=== PATIENT | female | born 1950 | race Hispanic/Latino ===

== ENCOUNTER 2017-01-15 08:08 | Outpatient (CLI) | payer MEDICARE ==
--- NOTE | 2017-01-15 09:46 | Mammography Report ---
BILATERAL MAMMOGRAM with CAD: HISTORY: Cancer screening. Comparison study is dated January 01, 2016 FINDINGS: The breast tissue is heterogeneously dense, which could obscure detection of small masses (approximately 50%-75% glandular). No mass, distortion, suspicious calcification, or skin change is seen. IMPRESSION: Negative mammogram. There is no mammographic evidence of malignancy. RECOMMENDATION: Follow-up per ACS guidelines. BI-RADS CATEGORY: 1 = Negative ACR BI-RADS MAMMOGRAPHIC CODES: 0 = Needs additional imaging evaluation; 1 = Negative; 2 = Benign; 3 = Probably benign; 4 = Suspicious; 5 = Malignant; 6 = Known biopsy-proven malignancy COMMENT: 1. Dense breast tissue, i.e., adenosis, fibrocystic changes, etc., may obscure an underlying neoplasm. 2. Approximately 10% of cancers are not detected with mammography. 3. A negative mammography report should not delay biopsy if a clinically suspicious mass is present. COMMENT: Patient follow-up letters are generated in [employer].
== END 2017-01-15 08:09 | disposition home or self-care (01) ==
LOC: MAMMO 08:08
PROVIDERS: ATTEND Family Medicine
DX: Z12.31 Encounter for screening mammogram for malignant neoplasm of breast (principal); E78.00 Pure hypercholesterolemia, unspecified; J44.9 Chronic obstructive pulmonary disease, unspecified; F32.9 Major depressive disorder, single episode, unspecified; F17.200 Nicotine dependence, unspecified, uncomplicated
CPT/HCPCS: 77067; G0202

== ENCOUNTER 2018-01-26 08:26 | Outpatient (CLI) | payer MEDICARE ==
--- NOTE | 2018-01-26 09:46 | Mammography Report ---
BILATERAL DIGITAL SCREENING MAMMOGRAM with CAD : 01/26/18 08:26:00 CLINICAL: Routine screening. COMPARISON:01/15/18 FINDINGS: The breasts are heterogeneously dense, which may obscure small masses. No mass, architectural distortion or suspicious calcifications. IMPRESSION: No mammographic evidence of malignancy. BI-RADS CATEGORY: 2 -- Benign RECOMMENDATION: Routine mammographic screening in one year. COMMENT: Patient follow-up letters are generated by our [employer] application.
== END 2018-01-26 08:27 | disposition home or self-care (01) ==
LOC: MAMMO 08:26
PROVIDERS: ATTEND Family Medicine
DX: Z12.31 Encounter for screening mammogram for malignant neoplasm of breast (principal); E78.00 Pure hypercholesterolemia, unspecified; J44.9 Chronic obstructive pulmonary disease, unspecified; F32.9 Major depressive disorder, single episode, unspecified; Z90.710 Acquired absence of both cervix and uterus; Z88.0 Allergy status to penicillin
CPT/HCPCS: 77067

== ENCOUNTER 2022-01-02 10:22 | Outpatient (CLI) | payer MEDICARE ==
--- NOTE | 2022-01-03 11:28 | Mammography Report ---
DIGITAL SCREENING MAMMOGRAM WITH CAD, 01/02/2022 CLINICAL INFORMATION / INDICATION: Routine screening mammography. SCREENING MAMMOGRAM TECHNIQUE: Digital bilateral 2D mammography was obtained in the craniocaudal and mediolateral obliqu e projections. This examination was interpreted with the benefit of Computer-Aided Detection analysis . COMPARISON: 01/15/2017. FINDINGS: Breast Density: There are scattered areas of fibroglandular density. No dominant mass, suspicious calcifications, or architectural distortion in either breast. IMPRESSION: No mammographic evidence of malignancy. Follow up recommendation: Routine yearly screening mammogram. BI-RADS Category 1: NEGATIVE A "normal" or negative report should not discourage follow up or biopsy of a clinically significant f inding. A written summary of these findings will be mailed to the patient. The patient will be entered into a mammography reporting system which will generate a reminder letter for the patient's next appointmen t at the appropriate interval. The [employer] recommends yearly mammograms starting at age 40 and continuing as l raiza as a woman is in good health. Breast MRI is recommended for women with an approximate 20-25% or greater lifetime risk of breast cancer, including women with a strong family history of breast or ova tiffanie cancer or who have been treated for Hodgkin's disease. Signer Name: Eliecer Boyd MD Signed: 01/03/2022 11:23 AM Workstation Name: [email or web address]
== END 2022-01-02 10:23 | disposition home or self-care (01) ==
LOC: MAMMO 10:22
PROVIDERS: ATTEND Family Medicine
DX: Z12.31 Encounter for screening mammogram for malignant neoplasm of breast (principal)
CPT/HCPCS: 77067